=== PATIENT | female | born 1955 | race Caucasian/White ===

== ENCOUNTER 2016-08-05 20:08 | Emergency (ER) | payer BC, OTHER ==
[~2016-08-05] VITALS: Ht 167.6 cm; Wt 87.8 kg
[2016-08-05 20:11] VITALS: TEMP 36.7; Ht 167.6 cm; Wt 87.8 kg
[2016-08-05 21:05] LABS: BASO % 0.6 %; BASO ABS # 0.04 K/uL (0-0.2); COMPLETE YES; HEMATOCRIT 42.7 % (37-47); IG% 0.1 %; LYMPH % 29.2 %; LYMPH ABS # 1.95 K/uL (1.2-3.4); MEAN CELL VOLUME 96.2 fL (80-100); MEAN CORPUSCULAR HEMOGLOBIN 31.8 pg (25-34); MEAN PLATELET VOLUME 9.3 fL (7.4-10.4); NEUT % 57.1 %; PLATELET COUNT 257 K/uL (130-400); RED BLOOD COUNT 4.44 M/uL (4.2-5.4); WHITE BLOOD COUNT 6.67 K/uL (4.8-10.8)
[2016-08-05 21:24] LABS: ALT/SGPT 68 U/L (12-78); AST/SGOT 30 U/L (15-37); BLOOD UREA NITROGEN 20 mg/dl (7-18); BUN/CREATININE RATIO 16.6 (10-20); C-REACTIVE PROTEIN < 0.29 mg/dl (0-0.29); CALCIUM 8.6 mg/dl (8.5-10.1); CARBON DIOXIDE 26 mmol/L (21-32); CHLORIDE 109 mmol/L (98-107); GLUCOSE 105 mg/dl (70-99); MAGNESIUM 2.3 mg/dl (1.8-2.4); POTASSIUM 3.7 mmol/L (3.5-5.1); SODIUM 144 mmol/L (136-145)
[2016-08-05] MEDS ORDERED: VITACAP26 (21:32)
[2016-08-05] MEDS ORDERED: MULT-513 PO (21:32)
[2016-08-05] MEDS ORDERED: MISCCAP80 PO (21:32)
[2016-08-05] MEDS ORDERED: METO25TA56 PO (21:32)
[2016-08-05] MEDS ORDERED: AMLO2.5T PO (21:32)
[2016-08-05] MEDS ORDERED: MILK1CAP9 PO (21:32)
[2016-08-05] MEDS ORDERED: ATOR-22 PO (21:32)
[2016-08-05 21:34] LABS: ALB/GLOB RATIO 1.1 (0.9-2); ALKALINE PHOSPHATASE 82 U/L (45-117)
--- NOTE | 2016-08-05 21:34 | DIAGNOSTIC IMAGING REPORT ---
HEAD CT NONCONTRAST CT DOSE: 537.48 mGy.cm HISTORY: Pain Pain in left occipital region, intermittent. No trauma TECHNIQUE: Multiaxial CT images of the head were performed without the use of intravenous contrast. Comparison: None. Findings: The paranasal sinuses and mastoid air cells are clear. The calvarium and skull base are intact. The ventricles and sulci are within normal limits. There is no mass, hematoma, midline shift, or acute infarct. Impression: No acute intracranial abnormality. Electronically signed by: Chilo Glaser M.D. 08/05/2016 9:33 PM Dictated Date/Time: 08/05/2016 9:32 PM
[2016-08-05 21:53] LABS: LYME DISEASE AB IGG NEG (NEG)
[2016-08-05 21:54] LABS: LYME DISEASE AB IGM NEG (NEG)
[2016-08-05 22:01] VITALS: O2SAT 96
--- NOTE | 2016-08-05 22:17 | EMERGENCY ROOM VISIT NOTE ---
History First contact with patient: 20:18 Chief Complaint: HEAD PAIN Stated Complaint: SHARP PAIN IN BACK OF HEAD BEHIND R EAR History of Present Illness The patient is a 60 year old female who presents to the Emergency Room via private vehicle accompanied by with complaints of "sharp pain in back of head behind right ear". The patient states that for the past for 5 days she has had a stabbing sensation to the skin overlying the right posterior Rhino on right occipital region. She points to the skin as location of pain that comes in waves and is rated as a 9/10 at its worse. At rest there is no pain. Sometimes this is worse with movement of her neck. She is not able to reproduce the pain every time with movements though. She states that over the past for 5 days the frequency of the pain has increased. She is managed for pain with extra strength Tylenol which does seem to help. Pain is also worse with bending over. She denies any fall or trauma to the head, fevers, chills, chest pain, shortness of breath. She does feel slightly flushed in the face. She did not receive her zoster vaccine Review of Systems A complete 10-point Review of Systems was discussed with the patient, with pertinent positives and negatives listed in the History of Present Illness. All remaining Review of Systems questions can be considered negative unless otherwise specified. Past Medical/Surgical History High blood pressure, , renal calculi Family History Diabetes, heart disease, hypertension. Social History Smoking Status: Never Smoker Social History: Patient is currently retired, and lives at home with . Current/Historical Medications Scheduled Amlodipine (Norvasc), 2.5 MG PO DAILY Atorvastatin (Lipitor), 20 MG PO DAILY Metoprolol Tartrate (Lopressor) (Lopressor), 25 MG PO BID Milk Thistle (Silybum Marianum (Milk Thistle), 1 CAP PO DAILY Multivitamins/Minerals (Mvi With Minerals), 1 TAB PO DAILY Probiotic Product (Probiotic), 1 CAP PO DAILY Vitamins C & E (Vitamin C), 1 CAP DAILY Allergies Coded Allergies: Amoxicillin (Verified Allergy, Intermediate, rash, 08/05/16) Clavulanic Acid (Verified Allergy, Intermediate, rash, 08/05/16) Penicillins (Verified Allergy, Unknown, rash, 08/05/16) Physical Exam Vital Signs Date Time Temp Pulse Resp B/P (MAP) Pulse Ox O2 Delivery O2 Flow Rate FiO2 08/05/16 22:28 60 16 155/101 99 Room Air 08/05/16 22:01 96 Room Air 08/05/16 21:57 58 08/05/16 21:53 60 16 153/99 96 Room Air 08/05/16 20:11 36.7 63 20 168/97 96 Room Air Physical Exam VITAL SIGNS - Vital signs and nursing notes were reviewed. She is afebrile, hypertensive at 160/97, non-tachycardic and is saturating well on room air 96%. GENERAL -60-year-old female appearing her stated age who is in no acute distress. Communicates well with provider and answers questions appropriately. SKIN - Without rashes. Specifically, there are no herpetic lesions or skin changes overlying the scalp. HEAD - NC/AT. There is tenderness to palpation overlying the skin of the right posterior occipital region and parietal region. EYES - PERRL with EOMI bilaterally. Sclera anicteric. Palpebral conjunctiva pink and moist with no injection noted. EARS - No deformities of external structures noted on gross examination bilaterally. No pain elicited with palpation of the tragus bilaterally. External auditory canals without discharge or otorrhea. Tympanic membranes pearly jessica without retraction or bulging. No fluid or purulent material visualized behind the TM. Handle of malleus, umbo, cone of light, pars tensa/ flaccid all easily visualized. NOSE - Midline and without cyanosis. No epistaxis or purulent drainage noted. Septum midline without deviation or septal hematoma noted. MOUTH/OROPHARYNX - Without perioral cyanosis. Buccal mucosa pink and moist and without leukoplakia. Tongue midline with equal elevation of palate bilaterally. No tonsillar hypertrophy, erythema, or exudates noted. Fair dentition noted. NECK - Neck with FROM. Supple to palpation. No lymphadenopathy noted. No nuchal rigidity. No meningismus. No C-spine tenderness. LUNGS - Chest wall symmetric without accessory muscle use, intercostals retractions, or central cyanosis. Normal vesicular breath sounds CTA B/L. No wheezes, rales, or rhonchi appreciated. CARDIAC - RRR with S1/S2. No murmur, rubs, or gallops appreciated. EXTREMITIES - +5/5 strength noted in UE/LE bilaterally. NEUROLOGIC - Cranial nerves II through XII grossly intact. Sensory intact to light touch throughout. PSYCH - Pt is very pleasant and interacts well with examiner. Medical Decision & Procedures ER Provider Diagnostic Interpretation: HEAD CT NONCONTRAST CT DOSE: 537.48 mGy.cm HISTORY: Pain Pain in left occipital region, intermittent. No trauma TECHNIQUE: Multiaxial CT images of the head were performed without the use of intravenous contrast. Comparison: None. Findings: The paranasal sinuses and mastoid air cells are clear. The calvarium and skull base are intact. The ventricles and sulci are within normal limits. There is no mass, hematoma, midline shift, or acute infarct. Impression: No acute intracranial abnormality. Electronically signed by: Chilo Glaser M.D. 08/05/2016 9:33 PM Dictated Date/Time: 08/05/2016 9:32 PM Laboratory Results 08/05/16 20:58 Red Blood Count 4.44, Mean Corpuscular Volume 96.2, Mean Corpuscular Hemoglobin 31.8, Mean Corpuscular Hemoglobin Concent 33.0, Mean Platelet Volume 9.3, Neutrophils (%) (Auto) 57.1, Lymphocytes (%) (Auto) 29.2, Monocytes (%) (Auto) 10.0, Eosinophils (%) (Auto) 3.0, Basophils (%) (Auto) 0.6, Neutrophils # (Auto ) 3.80, Lymphocytes # (Auto) 1.95, Monocytes # (Auto) 0.67, Eosinophils # (Auto ) 0.20, Basophils # (Auto) 0.04 08/05/16 20:58 Test 08/05/16 20:58 White Blood Count 6.67 K/uL (4.8-10.8) Red Blood Count 4.44 M/uL (4.2-5.4) Hemoglobin 14.1 g/dL (12.0-16.0) Hematocrit 42.7 % (37-47) Mean Corpuscular Volume 96.2 fL (80-100) Mean Corpuscular Hemoglobin 31.8 pg (25-34) Mean Corpuscular Hemoglobin Concent 33.0 g/dl (32-36) Platelet Count 257 K/uL (130-400) Mean Platelet Volume 9.3 fL (7.4-10.4) Neutrophils (%) (Auto) 57.1 % Lymphocytes (%) (Auto) 29.2 % Monocytes (%) (Auto) 10.0 % Eosinophils (%) (Auto) 3.0 % Basophils (%) (Auto) 0.6 % Neutrophils # (Auto) 3.80 K/uL (1.4-6.5) Lymphocytes # (Auto) 1.95 K/uL (1.2-3.4) Monocytes # (Auto) 0.67 K/uL (0.11-0.59) Eosinophils # (Auto) 0.20 K/uL (0-0.5) Basophils # (Auto) 0.04 K/uL (0-0.2) RDW Standard Deviation 45.1 fL (36.4-46.3) RDW Coefficient of Variation 12.9 % (11.5-14.5) Immature Granulocyte % (Auto) 0.1 % Immature Granulocyte # (Auto) 0.01 K/uL (0.00-0.02) Erythrocyte Sedimentation Rate 7 mm/hr (0-21) Anion Gap 9.0 mmol/L (3-11) Est Creatinine Clear Calc Drug Dose 55.6 ml/min Estimated GFR () 56.9 Estimated GFR (Non- 49.1 BUN/Creatinine Ratio 16.6 (10-20) Calcium Level 8.6 mg/dl (8.5-10.1) Magnesium Level 2.3 mg/dl (1.8-2.4) Total Bilirubin 0.5 mg/dl (0.2-1) Aspartate Amino Transf (AST/SGOT) 30 U/L (15-37) Alanine Aminotransferase (ALT/SGPT) 68 U/L (12-78) Alkaline Phosphatase 82 U/L (45-117) C-Reactive Protein < 0.29 mg/dl (0-0.29) Total Protein 7.5 gm/dl (6.4-8.2) Albumin 4.0 gm/dl (3.4-5.0) Globulin 3.5 gm/dl (2.5-4.0) Albumin/Globulin Ratio 1.1 (0.9-2) Thyroid Stimulating Hormone (TSH) 1.700 uIu/ml (0.300-4.500) Lyme Disease IgG Antibody NEG (NEG) Lyme Disease IgM Antibody NEG (NEG) Medical Decision Patient was seen and evaluated as above. After obtaining a thorough history and physical examination IV access was initiated and the above workup was performed. The patient was listless today with pain on the skin overlying the back of her head. I suspect she is likely experiencing symptoms before that of shingles, however this cannot be confirmed. CT scan of the head is negative. Blood work is essentially unremarkable. CBC reveals no leukocytosis or anemia. ESR is within normal limits at 7. Chloride high at 109, BUN high at 20, creatinine high at 1.2, glucose 15. TSH within normal limits. C-reactive protein unremarkable. Lyme test negative. The patient this time is most likely experiencing neurologic irritation to the nerves overlying the scalp of the right head. This is in the same dermatome and may be the beginning of shingles, however without the classic herpetic rash I do not want to treat with antivirals without a clear diagnosis. This was discussed with the patient, and the decision was made to hold off of antivirals at this time, and a wait to see if the pain would resolve or progressed to a rash. At that time they are to return here or follow-up with the family doctor. They're to follow up with family doctor anyway, regarding today's visit as well as for kidney function rechecked. They were educated upon worrisome symptoms which to return, offer pain medication but declined stating that they would take Tylenol, educated upon management today's findings and were discharged home in good condition. In the evaluation and treatment of this patient, the following differential diagnoses were considered: Concussion, Contrecoup Injury, Brain Tumor, Depression, Encephalitis, Hypothyroidism, Meningitis, CVA, TIA, Migraine, Cluster Headache, Intracranial Abnormality, zoster, Intracranial Hemorrhage, Subdural Hematoma, Subarachnoid Hemorrhage, Hydrocephalus. Impression Primary Impression: right occipital pain Departure Information Dispostion Home / Self-Care Condition GOOD Referrals Issac Sandoval M.D. (PCP) Patient Instructions My [facility] Additional Instructions You have been treated in the Emergency Department for a head pain. CT Scan of your head/brain demonstrated no acute bleeding or other abnormalities. For pain control, you can use the following [id number] medicines (if >12 yo): - Regular strength (325mg/tab) Tylenol (acetaminophen) 2 tabs every 4-6 hours as needed. Do not exceed 12 tablets in a 24 hour period. Avoid taking more than 3 grams (3000 mg) of Tylenol per day. This includes any other sources of acetaminophen you may take on a regular basis. - Regular strength (200 mg/tab) Advil (ibuprofen) 1-2 tabs every 4-6 hours as needed. Do not exceed a dose of 3200 mg per day. You should relax in a quiet, dark place for the rest of the day. Avoid any possible triggers including: cigarette smoke, caffeine, nicotine, chocolate, wine, beer, loud noises or music, or bright lights. You should schedule a follow-up appointment with your Primary Care Provider for further evaluation and treatment of your Head pain. Please also follow-up regarding your kidney function. As we discussed, you may be experiencing the beginning of shingles. At this time there is no rash. If this would develop please return immediately or follow up with your family doctor for medical treatment of this. Return to the Emergency Department if your current symptoms worsen despite treatment course outlined above, or if you develop any of the following symptoms : intractable pain despite aforementioned treatment course, visual disturbances , loss of vision, unilateral weakness or facial drooping, slurring of speech, loss of coordination, or loss of consciousness. Please return to emergency department with any new/concerning symptoms.
[2016-08-05 22:28] VITALS: BP 155/101; PULSE 60; O2SAT 99
== END 2016-08-05 22:33 | disposition home or self-care (01) ==
LOC: C.EDB 20:10 → C.EDC 22:33
DX: H57.11 Ocular pain, right eye (principal); R51 Headache